=== PATIENT | male | born 1990 | race Caucasian/White ===

== ENCOUNTER 2017-11-14 02:57 | Emergency (ER) | payer MEDICAID ==
[~2017-11-14] VITALS: Ht 185.4 cm; Wt 95.8 kg
[2017-11-14 03:10] VITALS: Ht 185.4 cm; Wt 95.8 kg
[2017-11-14 06:07] VITALS: BP 125/70
== END 2017-11-14 06:07 | disposition home or self-care (01) ==
LOC: ED 02:57
DX: J02.9 Acute pharyngitis, unspecified (principal)
CPT/HCPCS: J1100